=== PATIENT | female | born 1940 | race African-American/Black ===

== ENCOUNTER 2018-12-10 19:04 | Emergency (ER) | payer OTHER ==
[~2018-12-10] VITALS: Ht 162.6 cm; Wt 50.0 kg
[2018-12-10] MEDS ORDERED: SODIUM CHLORIDE 0.9% 1,000 ML IV ONE (19:38)
[2018-12-10] MEDS ORDERED: ONDANSETRON HCL 4MG/2ML INJ IV STA (19:38)
[2018-12-10] MEDS ORDERED: NITROGLYCERIN 0.4MG TABLET SL SL PRN (19:45)
[2018-12-10] MEDS ORDERED: MAGNESIUM/ALUMINUM HYDROXIDE/SIMETHICONE 30ML UDC PO ONE (19:45)
[2018-12-10] MEDS ORDERED: ASPIRIN 81MG TABLET PO ONE (19:45)
[2018-12-10 20:08] LABS: BASOPHILS % 0.3 % (0.0-2.0); EOSINOPHILS % 0.9 % (0.0-5.0); HEMATOCRIT. 39.2 % (36.0-48.0); HEMOGLOBIN. 13.7 g/dL (12.0-16.0); LYMPHOCYTES % 19.9 % (20.0-50.0); MEAN CORPUSCULAR HEMOGLOBIN 29.4 pg (28.0-32.0); MEAN CORPUSCULAR VOLUME 84.5 fL (81.0-99.0); MEAN PLATELET VOLUME 9.1 fl (7.4-10.4); MONOCYTES % 5.9 % (2.0-8.0); PLATELET 238 x1000/uL (130-400); RED BLOOD CELL COUNT 4.65 mill/uL (4.2-5.4); RED CELL DISTRIBUTION WIDTH 15.1 % (11.6-14.6)
[2018-12-10 20:13] LABS: CHLORIDE 105 mEq/L (98-107)
[2018-12-10] MEDS ORDERED: HYDRALAZINE 20MG/ML VIAL IV ONE (21:45)
[2018-12-10 23:13] LABS: CLARITY URINE CLEAR (CLEAR); COLOR URINE YELLOW (YELLOW); KETONES URINE NEGATIVE (NEGATIVE); LEUKOCYTE ESTERASE URINE NEGATIVE (NEGATIVE); NITRITE URINE NEGATIVE (NEGATIVE); OCCULT BLOOD URINE NEGATIVE (NEGATIVE); PROTEIN URINE NEGATIVE (NEGATIVE); SPECIFIC GRAVITY URINE 1.008 (1.005-1.030); UROBILINOGEN URINE 0.2 E.U./dL (0.2-1.0)
[2018-12-11 01:00] VITALS: BP 191/94
[2018-12-11] MEDS ORDERED: POTASSIUM CHLORIDE 20MEQ TABLET SR PO ONE (01:00)
[2018-12-11] MEDS ORDERED: HYDRALAZINE 20MG/ML VIAL IV ONE (01:45)
== END 2018-12-11 01:30 | disposition short-term general hospital (02) ==
LOC: ER 19:04 → EDBEDREQ 21:52 → EDBEDREQTM 21:52 → ER 12-11 01:30 → CANBEDREQ 12-11 03:09
DX: R07.89 Other chest pain (principal); I16.1 Hypertensive emergency; R10.12 Left upper quadrant pain; R11.2 Nausea with vomiting, unspecified
CPT/HCPCS: 36415; 71045; 74176; 80053; 81003; 82962; 83690; 84484; 85025; 93005; 96361; 96374; 96375; 96376; 99285; J0360; J2405; J7030